=== PATIENT | male | born 1995 | race Caucasian/White ===

== ENCOUNTER 2024-12-08 12:51 | Outpatient (REF) | payer OTHER, SELFPAY | END 2024-12-08 12:52 | disposition home or self-care (01) | LOC: HO.SH 12:51 | PROVIDERS: Visit Provider Physician Assistant | DX: Z01.118 Encounter for examination of ears and hearing with other abnormal findings (principal); H93.293 Other abnormal auditory perceptions, bilateral | CPT/HCPCS: 92557; 92567 ==